=== PATIENT | female | born 1955 | race Caucasian/White ===

== ENCOUNTER → 2018-12-27 | Outpatient (CLI) | payer MEDICARE, MEDICAID ==
[~2018-12-27] MED LIST: OMNIPAQUE 350 MG/ML, 100ML BOTTLE ONE
== END | disposition home or self-care (01) ==
LOC: CFH 10:16
PROVIDERS: ATTEND Nurse Practitioner Family
DX: K76.0 Fatty (change of) liver, not elsewhere classified (principal); K80.19 Calculus of gallbladder with other cholecystitis with obstruction; E04.1 Nontoxic single thyroid nodule; K82.8 Other specified diseases of gallbladder; N28.1 Cyst of kidney, acquired; I10 Essential (primary) hypertension; J44.9 Chronic obstructive pulmonary disease, unspecified; Z87.891 Personal history of nicotine dependence; Z88.0 Allergy status to penicillin
CPT/HCPCS: 71275; 76700; Q9967

== ENCOUNTER → 2019-01-23 | Outpatient (CLI) | payer MEDICARE, MEDICAID ==
[~2019-01-23] MED LIST changes: +ATOR20TA PO; +BENZ0.5T35 PO; +DULO60CA55 PO; +FURO20TA3 PO; +GABA300C10 PO; +HYDR50TA13 PO; +METF500T17 PO; -OMNIPAQUE 350 MG/ML, 100ML BOTTLE ONE; +POTA20PA25 PO; +VALB80CA PO
[2019-01-23 10:31] LABS: ALBUMIN 3.7 g/dL (3.4-5.0); ANION GAP 4 mmol/L (5-15); CALCIUM 9.4 mg/dL (8.5-10.1); CHLORIDE 107 mmol/L (98-107)
[2019-01-23 10:35] LABS: ALANINE AMINOTRANSFERASE 15 U/L (12-78); ALKALINE PHOSPHATASE 104 U/L (45-117); BILIRUBIN,TOTAL 0.4 mg/dL (0.2-1.0); CREATININE 0.89 mg/dL (0.55-1.02); TOTAL PROTEIN 7.7 g/dL (6.4-8.2)
== END | disposition home or self-care (01) ==
LOC: STAR 09:02
PROVIDERS: ATTEND Surgery Vascular Surgery
DX: Z01.818 Encounter for other preprocedural examination (principal)
CPT/HCPCS: 36415; 80053; 93005

== ENCOUNTER 2019-01-28 06:02 | Day surgery (SDC) | payer MEDICARE, MEDICAID ==
[~2019-01-28] VITALS: Ht 162.6 cm; Wt 92.0 kg
[2019-01-28 06:28] VITALS: BP 126/80
[2019-01-28] MEDS ORDERED: MIDAZOLAM 1 MG/ML, 2ML ONE (07:04)
[2019-01-28] MEDS ORDERED: FENTANYL PF 250 MCG/5ML ONE (07:04)
[2019-01-28] MEDS ORDERED: BUPIVACAINE/PF-EPI 0.5% 1:200K ONE (07:12)
[2019-01-28] MEDS ORDERED: FENTANYL PF 100 MCG/2ML ONE (08:23)
[2019-01-28] MEDS ORDERED: MEPERIDINE/PF 25MG/ML,1ML ONE (08:24)
[2019-01-28] MEDS ORDERED: PROMETHAZINE 25 MG/ML, 1ML IV PRN (08:30)
[2019-01-28] MEDS ORDERED: KETOROLAC 30 MG/1 ML IV PRN (08:30)
[2019-01-28] MEDS ORDERED: LABETALOL 5MG/ML, 20ML IV PRN (08:30)
[2019-01-28] MEDS ORDERED: ONDANSETRON 2MG/ML, 2ML IVPush PRN (08:30)
[2019-01-28] MEDS ORDERED: MEPERIDINE/PF 25MG/0.5ML IVPush PRN (08:30)
[2019-01-28] MEDS ORDERED: hydrALAzine 20 MG/ML, 1ML IV PRN (08:30)
[2019-01-28] MEDS ORDERED: ALBUTEROL SULFATE 2.5 MG/3 ML NPPB PRN (08:30)
[2019-01-28] MEDS ORDERED: METOCLOPRAMIDE 5 MG/ML, 2ML IV PRN (08:30)
[2019-01-28] MEDS ORDERED: HYDROmorphone 1 MG/ML, 1ML AMP IV PRN (08:30)
[2019-01-28] MEDS ORDERED: OXYcodone 5 MG/5 ML ORAL.SOL UDC PO PRN (08:30)
[2019-01-28] MEDS: FENTANYL PF 100 MCG/2ML IV PRN ×3 (08:41→08:58)
[2019-01-28] MEDS ORDERED: HYDROcodone/APAP 5/325 TABLET PO PRN (10:00)
[2019-01-28] MEDS ORDERED: PROPOFOL 10 MG/ML, 20ML ONE (10:31)
[2019-01-28] MEDS ORDERED: SUCCINYLCHOLINE 20 MG/ML, 10ML ONE (10:31)
[2019-01-28] MEDS ORDERED: DEXAMETHASONE 4 MG/ML, 1ML ONE (10:31)
[2019-01-28] MEDS ORDERED: NEOSTIGMINE 1 MG/ML, 10ML ONE (10:31)
[2019-01-28] MEDS ORDERED: ONDANSETRON 2MG/ML, 2ML ONE (10:31)
[2019-01-28] MEDS ORDERED: GLYCOPYRROLATE 0.2MG/1ML, 5ML ONE (10:31)
[2019-01-28] MEDS ORDERED: CEFAZOLIN 1,000 MG ONE (10:31)
[2019-01-28] MEDS ORDERED: ROCURONIUM 10MG/ML,5ML ONE (10:31)
== END 2019-01-28 12:50 | disposition home or self-care (01) ==
LOC: OUT 06:02
PROVIDERS: ATTEND Surgery Vascular Surgery
DX: K80.10 Calculus of gallbladder with chronic cholecystitis without obstruction (principal); F41.9 Anxiety disorder, unspecified; J44.9 Chronic obstructive pulmonary disease, unspecified; F32.9 Major depressive disorder, single episode, unspecified; E03.9 Hypothyroidism, unspecified; F17.210 Nicotine dependence, cigarettes, uncomplicated; I10 Essential (primary) hypertension; Z86.19 Personal history of other infectious and parasitic diseases; G43.909 Migraine, unspecified, not intractable, without status migrainosus; Z98.890 Other specified postprocedural states; Z72.89 Other problems related to lifestyle; Z88.5 Allergy status to narcotic agent; Z88.8 Allergy status to other drugs, medicaments and biological substances
CPT/HCPCS: 47562; 88304; J0330; J0690; J1100; J2175; J2250; J2405; J2704; J2710; J3010; J3490